=== PATIENT | female | born 1940 | race African-American/Black ===

== ENCOUNTER 2017-02-03 19:37 | Inpatient (IN) | payer MEDICARE, OTHER ==
[~2017-02-03] VITALS: Ht 157.5 cm; Wt 70.8 kg
[~2017-02-03 19:37] MED LIST: ALENDRONATE; CALCIUM; DICLOFENAC; FUROSEMIDE; GABAPENTIN
[2017-02-03] MEDS ORDERED: MORPHINE SULFATE 4 MG/ML CPJ (NOT FOR IM USE) IV STA (20:56)
[2017-02-03] MEDS ORDERED: ONDANSETRON HCL 4MG/2ML VIAL IV STA (20:56)
[2017-02-03 21:34] LABS: HEMATOCRIT. 42.4 % (36.0-48.0); HEMOGLOBIN. 14.2 g/dL (12.0-16.0); MEAN CORPUSCULAR HEMOGLOBIN 30.4 pg (28.0-32.0); MEAN CORPUSCULAR VOLUME 90.4 fL (81.0-99.0); MEAN PLATELET VOLUME 9.3 fl (7.4-10.4); PLATELET 189 x1000/uL (130-400); RED BLOOD CELL COUNT 4.69 mill/uL (4.2-5.4); RED CELL DISTRIBUTION WIDTH 13.8 % (11.6-14.6)
[2017-02-03 21:38] LABS: CHLORIDE 108 mEq/L (98-107)
[2017-02-03 21:41] LABS: D-DIMER 2.04 mg/L FEU (<0.50); PARTIAL THROMBOPLASTIN TIME 25.9 sec (23.4-31.0); PROTHROMBIN TIME 10.9 sec (9.4-11.6)
[2017-02-03 21:45] LABS: CARBON DIOXIDE 27 mEq/L (21-32)
[2017-02-03 21:48] LABS: TROPONIN I < 0.02 ng/mL (0.00-0.04)
[2017-02-03 22:17] LABS: PLATELET ESTIMATE NORMAL
[2017-02-04] MEDS ORDERED: DOCUSATE SODIUM 100MG CAPSULE PO PRN (00:45)
[2017-02-04] MEDS ORDERED: TRAMADOL 50MG TABLET PO PRN (00:45)
[2017-02-04] MEDS ORDERED: ACETAMINOPHEN 325MG TABLET PO PRN (00:45)
[2017-02-04] MEDS ORDERED: ONDANSETRON HCL 4MG/2ML VIAL IV PRN (00:45)
[2017-02-04] MEDS ORDERED: CLONIDINE 0.1MG TABLET PO PRN (00:45)
[2017-02-04 00:55] LABS: CLARITY URINE SL HAZY (CLEAR); COLOR URINE YELLOW (YELLOW); GLUCOSE URINE NEGATIVE (NEGATIVE); KETONES URINE NEGATIVE (NEGATIVE); LEUKOCYTE ESTERASE URINE 3+ (NEGATIVE); NITRITE URINE NEGATIVE (NEGATIVE); OCCULT BLOOD URINE NEGATIVE (NEGATIVE); PROTEIN URINE NEGATIVE (NEGATIVE); SPECIFIC GRAVITY URINE 1.008 (1.005-1.030)
[2017-02-04] MEDS ORDERED: ONDANSETRON HCL 4MG/2ML VIAL IV ONE (01:30)
[2017-02-04] MEDS ORDERED: MORPHINE SULFATE 4 MG/ML CPJ (NOT FOR IM USE) IV ONE (01:30)
[2017-02-04 04:00] VITALS: BP_SYST 105; BP_SYST 145; BP_DIAS 52; BP_DIAS 56
[2017-02-04] MEDS ORDERED: CELE200C PO (04:24)
[2017-02-04 04:26] VITALS: BP 145/52
[2017-02-04 08:00] VITALS: BP 114/63
[2017-02-04] MEDS ORDERED: LEVOFLOXACIN 500MG PREMIX 100 ML IV NR (08:00)
[2017-02-04] MEDS ORDERED: FUROSEMIDE 40MG/4ML VIAL IV SCH (09:00)
[2017-02-04] MEDS: ENOXAPARIN 40MG/0.4ML SYR SUBCUT SCH (09:05)
[2017-02-04] MEDS: IPRATROPIUM/ALBUTEROL 0.5-3(2.5)MG/3ML NEB INH SCH ×3 (09:38→21:50)
[2017-02-04 12:00] VITALS: BP 106/52
[2017-02-04] MEDS: POTASSIUM CHLORIDE 20MEQ TABLET SR PO SCH (13:02)
[2017-02-04] MEDS ORDERED: IOHEXOL-350 100 ML BOTTLE ONE (13:51)
[2017-02-04] MEDS ORDERED: SODIUM CHLORIDE 0.9% 10ML VIAL ONE (13:51)
[2017-02-04] MEDS ORDERED: REGADENOSON 0.4 MG/5 ML IV NR (15:00)
[2017-02-04 16:00] VITALS: BP 124/57
[2017-02-04 20:00] VITALS: BP 105/69
[2017-02-05] VITALS: BP 99/54
[2017-02-05] MEDS: IPRATROPIUM/ALBUTEROL 0.5-3(2.5)MG/3ML NEB INH SCH ×3 (02:25→12:00)
[2017-02-05 04:00] VITALS: BP 124/60
[2017-02-05 08:00] VITALS: BP 134/48
[2017-02-05] MEDS ORDERED: LEVOFLOXACIN 250MG PREMIX 50 ML IV SCH (08:00)
[2017-02-05] MEDS ORDERED: REGADENOSON 0.4 MG/5 ML IV ONE (08:28)
[2017-02-05] MEDS ORDERED: FUROSEMIDE 40MG/4ML VIAL IV SCH (09:00)
[2017-02-05] MEDS: POTASSIUM CHLORIDE 20MEQ TABLET SR PO SCH (10:14)
[2017-02-05] MEDS: ENOXAPARIN 40MG/0.4ML SYR SUBCUT SCH (10:16)
[2017-02-05 12:00] VITALS: BP 113/47
[2017-02-05 12:04] LABS: BASOPHILS % 0.5 % (0.0-2.0); EOSINOPHILS % 1.8 % (0.0-5.0); HEMATOCRIT. 47.7 % (36.0-48.0); HEMOGLOBIN. 15.8 g/dL (12.0-16.0); MEAN CORPUSCULAR HEMOGLOBIN 30.6 pg (28.0-32.0); MONOCYTES % 6.7 % (2.0-8.0); PLATELET 182 x1000/uL (130-400); RED BLOOD CELL COUNT 5.18 mill/uL (4.2-5.4)
[2017-02-05 12:27] LABS: CARBON DIOXIDE 29 mEq/L (21-32); CHLORIDE 101 mEq/L (98-107)
[2017-02-05 14:52] VITALS: BP 113/47
== END 2017-02-05 16:42 | disposition home or self-care (01) | DRG 292 ==
LOC: ER 19:37 → EDBEDREQTM 02-04 00:40 → 5WST 02-04 00:40 → EDBEDREQ 02-04 00:40 → ENRESERV 02-04 02:32
PROVIDERS: ADMIT Internal Medicine Nephrology; ATTEND Internal Medicine Nephrology
DX: I11.0 Hypertensive heart disease with heart failure (principal); N39.0 Urinary tract infection, site not specified; I24.9 Acute ischemic heart disease, unspecified; I35.1 Nonrheumatic aortic (valve) insufficiency; N20.0 Calculus of kidney; E78.5 Hyperlipidemia, unspecified; I50.9 Heart failure, unspecified; K64.9 Unspecified hemorrhoids; M79.7 Fibromyalgia; F17.210 Nicotine dependence, cigarettes, uncomplicated; Z98.42 Cataract extraction status, left eye; Z98.41 Cataract extraction status, right eye; Z88.0 Allergy status to penicillin; Z88.5 Allergy status to narcotic agent; Z88.8 Allergy status to other drugs, medicaments and biological substances; Z79.899 Other long term (current) drug therapy; Z86.73 Personal history of transient ischemic attack (TIA), and cerebral infarction without residual deficits
CPT/HCPCS: 36415; 71010; 71275; 78452; 80053; 80061; 81001; 83690; 83880; 84443; 84484; 85025; 85379; 85610; 85730; 87040; 87086; 93005; 93017; 93306; 93970; 94640; 94664; 96374; 96375; 96376; 97116; 97163; 97166; 99285; A4216; A9500; J1650; J1940; J1956; J2270; J2405; J2785; J7050; J7620; Q9967

== ENCOUNTER 2018-07-28 13:53 | Emergency (ER) | payer MEDICARE, OTHER ==
[~2018-07-28] VITALS: Ht 165.1 cm; Wt 85.0 kg
[~2018-07-28 13:53] MED LIST changes: -ALENDRONATE; -CALCIUM; +CELE200C PO; -DICLOFENAC; -FUROSEMIDE; -GABAPENTIN
[2018-07-28 15:57] VITALS: BP 114/40
== END 2018-07-28 16:54 | disposition left against medical advice (07) ==
LOC: ER 13:53
DX: Z53.21 Procedure and treatment not carried out due to patient leaving prior to being seen by health care provider (principal); M19.90 Unspecified osteoarthritis, unspecified site; M79.7 Fibromyalgia; F17.200 Nicotine dependence, unspecified, uncomplicated

== ENCOUNTER 2021-02-24 15:19 | Inpatient (IN) | payer MEDICARE, OTHER ==
[~2021-02-24] VITALS: Ht 157.5 cm; Wt 78.0 kg
[2021-02-24 16:46] LABS: BASOPHILS % 1.2 % (0.0-2.0); EOSINOPHILS % 2.9 % (0.0-5.0); HEMATOCRIT. 43.3 % (36.0-48.0); LYMPHOCYTES % 24.8 % (20.0-50.0); MEAN CORPUSCULAR HEMOGLOBIN 31.3 pg (28.0-32.0); MEAN CORPUSCULAR VOLUME 90.5 fL (81.0-99.0); MEAN PLATELET VOLUME 8.7 fl (7.4-10.4); MONOCYTES % 9.1 % (2.0-8.0); PLATELET 181 x1000/uL (130-400); RED BLOOD CELL COUNT 4.79 mill/uL (4.2-5.4); RED CELL DISTRIBUTION WIDTH 14.3 % (11.6-14.6)
[2021-02-24 16:57] LABS: CHLORIDE 110 mEq/L (98-107)
[2021-02-24 17:00] LABS: ETHANOL BLOOD < 10 mg/dL
[2021-02-24 17:04] LABS: CREATINE KINASE 106 IU/L (26-192)
[2021-02-24] MEDS ORDERED: ONDANSETRON HCL 4MG/2ML INJ IV PRN (17:15)
[2021-02-24] MEDS ORDERED: CLONIDINE 0.1MG TABLET PO PRN (17:15)
[2021-02-24 18:51] LABS: CLARITY URINE CLEAR (CLEAR); COLOR URINE YELLOW (YELLOW); KETONES URINE NEGATIVE (NEGATIVE); LEUKOCYTE ESTERASE URINE TRACE (NEGATIVE); NITRITE URINE NEGATIVE (NEGATIVE); OCCULT BLOOD URINE NEGATIVE (NEGATIVE); PH URINE 6.5 (4.5-8.0); PROTEIN URINE NEGATIVE (NEGATIVE); SPECIFIC GRAVITY URINE 1.013 (1.005-1.030); UROBILINOGEN URINE 0.2 E.U./dL (0.2-1.0)
[2021-02-24 19:01] LABS: *AMPHETAMINES SCREEN URINE NEGATIVE (NEGATIVE); *BARBITURATES SCREEN URINE NEGATIVE (NEGATIVE); *BENZODIAZEPINES SCREEN URINE NEGATIVE (NEGATIVE); *COCAINE SCREEN URINE NEGATIVE (NEGATIVE); CANNABINOID URINE SCREEN NEGATIVE (NEGATIVE)
[2021-02-24 19:03] LABS: METHADONE URINE SCREEN NEGATIVE (NEGATIVE); OPIATES URINE SCREEN NEGATIVE (NEGATIVE); PHENCYCLIDINE URINE SCREEN NEGATIVE (NEGATIVE)
[2021-02-24] MEDS ORDERED: METHYLPREDNISOLONE SOD SUCC 125 MG/2 ML VIAL IV STA (19:24)
[2021-02-24] MEDS ORDERED: ALBUTEROL (0.083%) 2.5MG/3ML NEB HHN STA (19:24)
[2021-02-24] MEDS: ENOXAPARIN 40MG/0.4ML SYR SUBCUT SCH (21:15)
[2021-02-24] MEDS: ACETAMINOPHEN 325MG TABLET PO PRN (21:17)
[2021-02-24] MEDS: SODIUM CHLORIDE 0.45% 1,000 ML IV SCH (21:18)
[2021-02-24] MEDS ORDERED: CEFTRIAXONE 1 G PREMIX 50 ML IV ONE (21:30)
[2021-02-24] MEDS ORDERED: LEVOFLOXACIN 500MG PREMIX 100 ML IV ONE (21:45)
[2021-02-25] MEDS: TRAMADOL 50MG TABLET PO PRN ×3 (02:33→22:18)
[2021-02-25 05:50] LABS: BASOPHILS % 0.5 % (0.0-2.0); HEMATOCRIT. 44.6 % (36.0-48.0); HEMOGLOBIN. 14.9 g/dL (12.0-16.0); LYMPHOCYTES % 8.5 % (20.0-50.0); MEAN CORPUSCULAR HEMOGLOBIN 30.7 pg (28.0-32.0); MEAN CORPUSCULAR VOLUME 91.6 fL (81.0-99.0); MEAN PLATELET VOLUME 8.7 fl (7.4-10.4); MONOCYTES % 1.1 % (2.0-8.0); NEUTROPHILS % 89.9 % (40.0-76.0); PLATELET 193 x1000/uL (130-400); RED BLOOD CELL COUNT 4.86 mill/uL (4.2-5.4); RED CELL DISTRIBUTION WIDTH 14.1 % (11.6-14.6)
[2021-02-25 05:55] LABS: CHLORIDE 108 mEq/L (98-107)
[2021-02-25 06:02] LABS: LDL CHOLESTEROL 122 mg/dL (5-100)
[2021-02-25 06:04] LABS: HDL CHOLESTEROL 79 mg/dL (40-59)
[2021-02-25] MEDS: SODIUM CHLORIDE 0.45% 1,000 ML IV SCH ×2 (07:11→20:29)
[2021-02-25 09:25] VITALS: BP_SYST 119; BP_SYST 147; BP_DIAS 53; BP_DIAS 64
[2021-02-25 09:40] VITALS: BP 147/53
[2021-02-25 12:00] VITALS: BP 119/64
[2021-02-25] MEDS: CELECOXIB 200MG CAPSULE PO SCH (13:30)
[2021-02-25 16:00] VITALS: BP 129/57
[2021-02-25] MEDS: ENOXAPARIN 40MG/0.4ML SYR SUBCUT SCH (17:30)
[2021-02-25 20:00] VITALS: BP 150/43
[2021-02-25] MEDS: ACETAMINOPHEN 325MG TABLET PO PRN (22:18)
[2021-02-25] MEDS: DOCUSATE SODIUM 100MG CAPSULE PO PRN (22:18)
[2021-02-26] VITALS (7 sets, daily range): BP systolic 115–158; BP diastolic 45–63
[2021-02-26] MEDS: TRAMADOL 50MG TABLET PO PRN ×2 (00:46→11:39)
[2021-02-26] MEDS ORDERED: LEVOFLOXACIN 500MG PREMIX 100 ML IV SCH (09:15)
[2021-02-26] MEDS: CELECOXIB 200MG CAPSULE PO SCH (10:18)
[2021-02-26] MEDS: SODIUM CHLORIDE 0.45% 1,000 ML IV SCH (10:18)
[2021-02-26] MEDS ORDERED: DIATR MEGLU/DIATRIZOATE SOLN 30ML PO NR ×2 (10:30→19:15)
[2021-02-26] MEDS: LEVOFLOXACIN 250MG PREMIX 50 ML IV SCH (11:25)
[2021-02-26] MEDS: DOCUSATE SODIUM 100MG CAPSULE PO PRN (11:39)
[2021-02-26] MEDS ORDERED: ATOR40TA70 PO (12:00)
[2021-02-26] MEDS ORDERED: DIATR MEGLU/DIATRIZOATE SOLN 30ML ONE (17:06)
[2021-02-26] MEDS: ENOXAPARIN 40MG/0.4ML SYR SUBCUT SCH (18:00)
[2021-02-27] VITALS (7 sets, daily range): BP systolic 109–143; BP diastolic 44–70
[2021-02-27] MEDS: SODIUM CHLORIDE 0.45% 1,000 ML IV SCH ×2 (00:36→12:25)
[2021-02-27 06:27] LABS: BASOPHILS % 0.8 % (0.0-2.0); EOSINOPHILS % 6.6 % (0.0-5.0); HEMATOCRIT. 42.5 % (36.0-48.0); HEMOGLOBIN. 14.1 g/dL (12.0-16.0); LYMPHOCYTES % 31.5 % (20.0-50.0); MEAN CORPUSCULAR HEMOGLOBIN 30.7 pg (28.0-32.0); MEAN CORPUSCULAR VOLUME 92.5 fL (81.0-99.0); MEAN PLATELET VOLUME 9.5 fl (7.4-10.4); MONOCYTES % 8.7 % (2.0-8.0); NEUTROPHILS % 52.4 % (40.0-76.0); PLATELET 176 x1000/uL (130-400); RED CELL DISTRIBUTION WIDTH 14.6 % (11.6-14.6)
[2021-02-27 06:36] LABS: CHLORIDE 108 mEq/L (98-107)
[2021-02-27] MEDS: CELECOXIB 200MG CAPSULE PO SCH (08:33)
[2021-02-27] MEDS: LEVOFLOXACIN 250MG PREMIX 50 ML IV SCH (09:48)
[2021-02-27] MEDS: TRAMADOL 50MG TABLET PO PRN (14:30)
== END 2021-02-27 16:46 | disposition home or self-care (01) | DRG 103 ==
LOC: ER 15:19 → SUPCPDRO 18:02 → MICUSO 02-25 00:23 → EDBEDREQ 02-25 00:25 → EDBEDREQSVC 02-25 00:26 → EDBEDREQ 02-25 00:26 → 6WST 02-25 07:56
PROVIDERS: ADMIT Internal Medicine Nephrology; ATTEND Internal Medicine Nephrology
DX: G44.209 Tension-type headache, unspecified, not intractable (principal); I10 Essential (primary) hypertension; M79.7 Fibromyalgia; G89.29 Other chronic pain; M19.90 Unspecified osteoarthritis, unspecified site; M54.9 Dorsalgia, unspecified; J44.9 Chronic obstructive pulmonary disease, unspecified; M25.569 Pain in unspecified knee; N20.0 Calculus of kidney; K76.89 Other specified diseases of liver; E78.5 Hyperlipidemia, unspecified; Z88.0 Allergy status to penicillin; Z88.6 Allergy status to analgesic agent; Z88.8 Allergy status to other drugs, medicaments and biological substances; Z79.899 Other long term (current) drug therapy; Z87.891 Personal history of nicotine dependence; Z86.73 Personal history of transient ischemic attack (TIA), and cerebral infarction without residual deficits
CPT/HCPCS: 36415; 70544; 70553; 71045; 74176; 80048; 80053; 80061; 80305; 80320; 81003; 82140; 82550; 83605; 84443; 84484; 85025; 85651; 86140; 93005; 93306; 93880; 93970; 97162; 97166; 99285; J1650; J1956; J2930; Q9963; G0480